=== PATIENT | female | born 1970 | race Caucasian/White ===

== ENCOUNTER 2025-07-18 08:23 | Day surgery (SDC) | payer OTHER ==
[~2025-07-18] VITALS: Ht 157.5 cm; Wt 90.0 kg
[~2025-07-18 08:23] MED LIST: SODIUM CHLORIDE 0.9% 1,000 ML ONE
[2025-07-18] MEDS ORDERED: PROPOFOL 1% 20 ML VIAL IVP ONE (08:24)
[2025-07-18] MEDS: SODIUM CHLORIDE 0.9% 1,000 ML IV ONE (09:20)
== END 2025-07-18 11:50 | disposition home or self-care (01) ==
LOC: SDS 08:23
PROVIDERS: ATTEND Internal Medicine Gastroenterology
DX: R19.4 Change in bowel habit (principal); D12.0 Benign neoplasm of cecum; K57.30 Diverticulosis of large intestine without perforation or abscess without bleeding; K64.8 Other hemorrhoids
CPT/HCPCS: 45380; 88305; C1769; J2704; J7030